=== PATIENT | male | born 1935 | race Caucasian/White ===

== ENCOUNTER 2020-08-16 18:01 | Inpatient (IN) ==
[2020-08-16 20:39] LABS: Basophils % 0.4 %; Eosinophils # 0.4 K/mcL (0.0-0.6); Eosinophils % 5.1 %; Hematocrit 43.3 % (37.5-50.1); Hemoglobin 13.7 g/dL (12.9-16.9); Immature Granulocytes % 0.1 % (0-4); Lymphocytes # 1.4 K/mcL (0.6-4.6); Lymphocytes % 19.2 %; Mean Corpuscular HGB Conc 31.6 g/dL (31.6-35.5); Mean Corpuscular Hemoglobin 29.7 pg (28.0-33.3); Mean Corpuscular Volume 93.7 fL (83.0-100.0); Mean Platelet Volume 9.8 fL (9.4-12.4); Monocytes # 0.8 K/mcL (0.0-1.3); Monocytes % 10.6 %; Neutrophils # 4.6 K/mcL (1.6-8.9); Platelet Count 149 K/mcL (140-400); Red Blood Count 4.62 M/mcL (4.19-5.50); Red Cell Distribution Width 12.5 % (11.5-14.5); Segmented Neutrophils % 64.6 %; White Blood Count 7.1 K/mcL (4.3-11.1)
[2020-08-16 20:44] LABS: INR 1.1; Prothrombin Time 12.4 Seconds (9.4-12.1)
[2020-08-16 20:46] LABS: Activated Partial Thrombo Time 28.9 Seconds (26.0-36.0)
[2020-08-16 21:01] LABS: BUN/Creatinine Ratio 18 (6-26); Blood Urea Nitrogen 20 mg/dL (8-23); Calcium 9.5 mg/dL (8.6-10.3); Carbon Dioxide 32 mEq/L (23-29); Chloride 102 mEq/L (98-107); Glucose 105 mg/dL (70-105); Osmolality,Calculated 289 (280-300); Sodium 138 mEq/L (136-145); eGFR For African Americans > 60 (> 60); eGFR For Non-African Americans > 60 (> 60)
[2020-08-16 21:04] LABS: Magnesium 1.8 mg/dL (1.6-2.6); Troponin I 0.06 ng/mL (< 0.04)
[2020-08-16] MEDS ORDERED: Aspirin 81 MG TAB.CHEW PO ONE (21:05)
[2020-08-16 21:13] LABS: Influenza A PCR Negative (Negative); Influenza B PCR Negative (Negative); Resp. Syncytial Virus PCR Negative (Negative)
[2020-08-16 21:15] LABS: SARS-CoV-2 by PCR (In House) Positive (Negative)
[2020-08-16 22:39] LABS: Thyroid Stimulating Hormone 0.726 mcIU/mL (0.340-5.600)
[2020-08-16] MEDS ORDERED: Naloxone 0.4 MG/ML INJ IVP PRN (22:41)
[2020-08-16] MEDS ORDERED: *HR* Promethazine 25 MG/ML VIAL IM PRN (22:47)
[2020-08-16] MEDS ORDERED: Ondansetron 4 MG/2 ML VIAL IVP PRN (22:47)
[2020-08-17] MEDS ORDERED: Perflutren Lipid Microsphere 1.3 ML in 0.9 % Sodium Chloride 8.7 ML IVP PRN (00:13)
[2020-08-17 02:08] LABS: Basophils % 0.1 %; Eosinophils # 0.3 K/mcL (0.0-0.6); Eosinophils % 4.5 %; Hematocrit 40.9 % (37.5-50.1); Hemoglobin 13.4 g/dL (12.9-16.9); Immature Granulocytes % 0.1 % (0-4); Lymphocytes # 1.3 K/mcL (0.6-4.6); Mean Corpuscular HGB Conc 32.8 g/dL (31.6-35.5); Mean Corpuscular Hemoglobin 30.9 pg (28.0-33.3); Mean Corpuscular Volume 94.2 fL (83.0-100.0); Monocytes # 0.8 K/mcL (0.0-1.3); Monocytes % 11.2 %; Neutrophils # 4.7 K/mcL (1.6-8.9); Platelet Count 129 K/mcL (140-400); Red Blood Count 4.34 M/mcL (4.19-5.50); Red Cell Distribution Width 12.4 % (11.5-14.5); Segmented Neutrophils % 66.1 %; White Blood Count 7.1 K/mcL (4.3-11.1)
[2020-08-17 02:12] LABS: INR 1.1; Prothrombin Time 12.6 Seconds (9.4-12.1)
[2020-08-17 02:33] LABS: Troponin I 0.06 ng/mL (< 0.04)
[2020-08-17 02:47] LABS: Chol/HDL Ratio 3.1 (0-4.9); Magnesium 1.8 mg/dL (1.6-2.6); Phosphorous 2.9 mg/dL (2.7-4.5)
[2020-08-17] MEDS ORDERED: Magnesium Sulfate 1 GM/102 ML PIGGYBACK IVPB ONE (03:23)
[2020-08-17] MEDS: *HR* Enoxaparin 40 MG/0.4 ML SYRINGE SQ SCH (04:58)
[2020-08-17] MEDS: Sennosides/Docusate Sodium TABLET PO SCH ×2 (08:30→23:54)
[2020-08-18 02:25] LABS: BUN/Creatinine Ratio 18 (6-26); Blood Urea Nitrogen 18 mg/dL (8-23); Calcium 9.4 mg/dL (8.6-10.3); Carbon Dioxide 25 mEq/L (23-29); Chloride 100 mEq/L (98-107); Glucose 85 mg/dL (70-105); Osmolality,Calculated 281 (280-300); Potassium 3.8 mEq/L (3.5-5.1); Sodium 135 mEq/L (136-145); eGFR For African Americans > 60 (> 60); eGFR For Non-African Americans > 60 (> 60)
[2020-08-18] MEDS: *HR* Enoxaparin 40 MG/0.4 ML SYRINGE SQ SCH (06:22)
[2020-08-18] MEDS: Sennosides/Docusate Sodium TABLET PO SCH ×2 (08:15→21:22)
[2020-08-18] MEDS: lisinopriL 10 MG TABLET PO SCH (08:15)
[2020-08-19] MEDS: *HR* Enoxaparin 40 MG/0.4 ML SYRINGE SQ SCH (05:50)
[2020-08-19 08:58] LABS: BUN/Creatinine Ratio 25 (6-26); Blood Urea Nitrogen 23 mg/dL (8-23); Carbon Dioxide 29 mEq/L (23-29); Chloride 99 mEq/L (98-107); Glucose 117 mg/dL (70-105); Magnesium 1.9 mg/dL (1.6-2.6); Osmolality,Calculated 283 (280-300); Potassium 3.8 mEq/L (3.5-5.1); Sodium 134 mEq/L (136-145); eGFR For African Americans > 60 (> 60); eGFR For Non-African Americans > 60 (> 60)
[2020-08-19] MEDS: Sennosides/Docusate Sodium TABLET PO SCH (10:07)
[2020-08-19] MEDS: lisinopriL 10 MG TABLET PO SCH (10:07)
[2020-08-19 11:56] VITALS: BP 140/62
== END 2020-08-19 15:38 | disposition home or self-care (01) | DRG 177 ==
LOC: CDU 18:01 → EMEROOARM 18:01 → CDU 23:23
PROVIDERS: ADMIT Internal Medicine; ATTEND Internal Medicine

== ENCOUNTER 2021-07-02 17:44 | Inpatient (IN) ==
[2021-07-02 19:30] LABS: Bilirubin,Urine Negative (Negative); Blood,Urine Negative (Negative); Clarity,Urine Clear (Clear); Color,Urine Light-Yellow (Yellow); Glucose,Urine (UA) Normal (Normal); Ketones,Urine Negative (Negative); Leukocyte Esterase,Urine Moderate (Negative); Nitrite,Urine Negative (Negative); PH,Urine 6.5 pH Units (5.0-8.0); Protein,Urine Trace mg/dL (Neg-Trace); Urobilinogen,Urine Normal (Normal); WBC,Urine 50-100 per hpf (0-3)
[2021-07-02 19:47] LABS: Amphetamine Screen,Urine Negative ng/mL (Cutoff=1000); Barbiturate Screen,Urine Negative ng/mL (Cutoff=200); Benzodiazepines Screen,Urine Negative ng/mL (Cutoff=200); Cannabinoid Screen,Urine Negative ng/mL (Cutoff = 50); Cocaine Screen,Urine Negative ng/mL (Cutoff= 300); Opiate Screen,Urine Negative ng/mL (Cutoff=300); Phencyclidine Screen,Urine Negative ng/mL (Cutoff=25)
[2021-07-02 20:09] LABS: Basophils # 0.1 K/mcL (0.0-0.2); Basophils % 0.9 %; Eosinophils # 0.6 K/mcL (0.0-0.6); Eosinophils % 7.1 %; Hematocrit 40.9 % (37.5-50.1); Hemoglobin 13.2 g/dL (12.9-16.9); Immature Granulocytes % 0.3 % (0-4); Lymphocytes # 1.3 K/mcL (0.6-4.6); Lymphocytes % 16.3 %; Mean Corpuscular HGB Conc 32.3 g/dL (31.6-35.5); Mean Corpuscular Hemoglobin 31.1 pg (28.0-33.3); Mean Corpuscular Volume 96.2 fL (83.0-100.0); Mean Platelet Volume 10.1 fL (9.4-12.4); Monocytes # 0.7 K/mcL (0.0-1.3); Monocytes % 9.1 %; Neutrophils # 5.1 K/mcL (1.6-8.9); Platelet Count 234 K/mcL (140-400); Red Blood Count 4.25 M/mcL (4.19-5.50); Segmented Neutrophils % 66.3 %; White Blood Count 7.7 K/mcL (4.3-11.1)
[2021-07-02 20:44] LABS: Acetaminophen < 10 mcg/mL (10-20); Alanine Aminotransferase 19 Units/L (7-52); Albumin/Globulin Ratio 1.4 (1.1-2.2); Alkaline Phosphatase 91 Units/L (34-104); Aspartate Amino Transferase 22 Units/L (13-39); BUN/Creatinine Ratio 18 (6-26); Bilirubin,Direct 0.1 mg/dL (0.0-0.2); Bilirubin,Indirect 0.5 mg/dL (0.0-1.0); Bilirubin,Total 0.6 mg/dL (0.3-1.0); Blood Urea Nitrogen 23 mg/dL (8-23); Calcium 9.9 mg/dL (8.6-10.3); Carbon Dioxide 30 mEq/L (23-29); Chloride 103 mEq/L (98-107); Ethanol < 10 mg/dL (Less than 10); Globulin 2.9 g/dL (2.4-3.5); Glucose 86 mg/dL (70-105); Osmolality,Calculated 293 (280-300); Salicylate < 2.5 mg/dL (15.0-30.0); Sodium 140 mEq/L (136-145); Thyroid Stimulating Hormone 0.777 mcIU/mL (0.340-5.600); Total Protein 6.9 g/dL (6.4-8.9); eGFR For African Americans > 60 (> 60); eGFR For Non-African Americans 54 (> 60)
[2021-07-02] MEDS ORDERED: cefTRIAXone 1,000 MG in 0.9 % Sodium Chloride Mini Bag 100 ML IVPB ONE (22:00)
[2021-07-02] MEDS ORDERED: *HR* Promethazine 25 MG/ML VIAL IM PRN (22:34)
[2021-07-02] MEDS ORDERED: Acetaminophen 325 MG TABLET PO PRN (22:34)
[2021-07-02] MEDS ORDERED: Naloxone 0.4 MG/ML INJ IVP PRN (22:34)
[2021-07-03] MEDS: *HR* HYDROcodone/Acet 5/325 mg TABLET PO PRN ×2 (00:48→19:11)
[2021-07-03] MEDS: 0.9 % Sodium Chloride 1,000 ML IVC SCH ×2 (00:49→01:00)
[2021-07-03] MEDS: Melatonin 3 MG TABLET PO PRN ×2 (00:49→19:11)
[2021-07-03] MEDS: QUEtiapine Fumarate 25 MG TABLET PO SCH ×2 (02:37→19:12)
[2021-07-03] MEDS ORDERED: *HR* LORazepam 2 MG/ML VIAL IVP ONE (03:01)
[2021-07-03] MEDS ORDERED: *HR* LORazepam 2 MG/ML VIAL ONE (03:02)
[2021-07-03] MEDS ORDERED: D5% in Water 1,000 ML IVC PRN (06:40)
[2021-07-03] MEDS ORDERED: *HR* Dextrose 50 % in Water (Syg) 50 ML SYRINGE IVP PRN (06:40)
[2021-07-03] MEDS ORDERED: Dextrose Gel 15 GM/37.5 ML TUBE PO PRN ×2 (06:40)
[2021-07-03] MEDS: cefTRIAXone 1,000 MG in Water for inj. (sterile) 10 ML IVP SCH (08:07)
[2021-07-03] MEDS ORDERED: cefTRIAXone 1,000 MG in 0.9 % Sodium Chloride Mini Bag 100 ML IVPB SCH (09:00)
[2021-07-03] MEDS: lisinopriL 10 MG TABLET PO SCH (10:37)
[2021-07-03] MEDS: Lactobacillus 1 EACH CAP.SPRINK PO SCH ×2 (10:37→19:11)
[2021-07-03] MEDS: Haloperidol Lactate 5 MG/ML VIAL IVP PRN ×3 (13:10→23:49)
[2021-07-04] MEDS ORDERED: *HR* LORazepam 2 MG/ML VIAL IVP ONE (01:01)
[2021-07-04 05:53] LABS: Hemoglobin 13.8 g/dL (12.9-16.9); Mean Corpuscular HGB Conc 32.1 g/dL (31.6-35.5); Mean Corpuscular Hemoglobin 30.2 pg (28.0-33.3); Mean Corpuscular Volume 94.1 fL (83.0-100.0); Mean Platelet Volume 9.8 fL (9.4-12.4); Platelet Count 213 K/mcL (140-400); Red Blood Count 4.57 M/mcL (4.19-5.50); Red Cell Distribution Width 12.8 % (11.5-14.5); White Blood Count 7.7 K/mcL (4.3-11.1)
[2021-07-04 06:11] LABS: BUN/Creatinine Ratio 16 (6-26); Blood Urea Nitrogen 18 mg/dL (8-23); Calcium 9.4 mg/dL (8.6-10.3); Carbon Dioxide 29 mEq/L (23-29); Chloride 103 mEq/L (98-107); Glucose 85 mg/dL (70-105); Osmolality,Calculated 291 (280-300); Potassium 3.7 mEq/L (3.5-5.1); Sodium 140 mEq/L (136-145); eGFR For African Americans > 60 (> 60); eGFR For Non-African Americans > 60 (> 60)
[2021-07-04] MEDS: Haloperidol Lactate 5 MG/ML VIAL IVP PRN ×2 (07:30→15:05)
[2021-07-04] MEDS: cefTRIAXone 1,000 MG in Water for inj. (sterile) 10 ML IVP SCH (07:30)
[2021-07-04] MEDS ORDERED: QUEtiapine Fumarate 25 MG TABLET PO SCH (09:00)
[2021-07-04] MEDS: hydroCHLOROthiazide 25 MG TABLET PO SCH (10:26)
[2021-07-04] MEDS: Lactobacillus 1 EACH CAP.SPRINK PO SCH ×2 (10:26→19:37)
[2021-07-04] MEDS: lisinopriL 10 MG TABLET PO SCH (10:26)
[2021-07-04] MEDS ORDERED: *HR* LORazepam 2 MG/ML VIAL IM STA (17:48)
[2021-07-04] MEDS ORDERED: Haloperidol Lactate 5 MG/ML VIAL IVP SCH (18:00)
[2021-07-04] MEDS: Haloperidol Lactate 5 MG/ML VIAL IVP SCH ×4 (19:14→23:19)
[2021-07-05] MEDS ORDERED: Ketorolac 30 MG/ML VIAL IVP ONE (02:06)
[2021-07-05] MEDS: Haloperidol Lactate 5 MG/ML VIAL IVP SCH (07:15)
[2021-07-05] MEDS: hydroCHLOROthiazide 25 MG TABLET PO SCH (08:13)
[2021-07-05] MEDS: lisinopriL 10 MG TABLET PO SCH (08:13)
[2021-07-05] MEDS: Lactobacillus 1 EACH CAP.SPRINK PO SCH ×2 (08:13→19:00)
[2021-07-05] MEDS: cefTRIAXone 1,000 MG in Water for inj. (sterile) 10 ML IVP SCH (08:13)
[2021-07-05] MEDS ORDERED: Morphine Sulfate 2 MG/ML SYRINGE IVP ONE (08:44)
[2021-07-05] MEDS ORDERED: Haloperidol Lactate 5 MG/ML VIAL IVP PRN (09:19)
[2021-07-05] MEDS ORDERED: Acetaminophen 650 MG RECTAL SUPP RC PRN (09:21)
[2021-07-05] MEDS ORDERED: Bisacodyl 10 MG RECTAL SUPPOSITORY RC PRN (09:22)
[2021-07-05] MEDS: Haloperidol Oral Conc 10 MG/5 ML UDC PO PRN (15:59)
[2021-07-05] MEDS ORDERED: *HR* LORazepam 2 MG/ML VIAL IVP ONE (20:22)
[2021-07-05] MEDS ORDERED: QUEtiapine Fumarate 25 MG TABLET PO SCH (21:00)
[2021-07-06] MEDS: Haloperidol Oral Conc 10 MG/5 ML UDC PO PRN (06:35)
[2021-07-06] MEDS: Lactobacillus 1 EACH CAP.SPRINK PO SCH ×2 (07:24→20:26)
[2021-07-06] MEDS: cefTRIAXone 1,000 MG in Water for inj. (sterile) 10 ML IVP SCH (07:34)
[2021-07-06] MEDS ORDERED: Haloperidol Lactate 5 MG/ML VIAL IVP SCH (08:03)
[2021-07-06] MEDS ORDERED: *HR* LORazepam 2 MG/ML VIAL IVP PRN (08:03)
[2021-07-06] MEDS: Haloperidol Oral Conc 10 MG/5 ML UDC PO SCH ×3 (13:53→20:34)
[2021-07-07] MEDS: Haloperidol Oral Conc 10 MG/5 ML UDC PO SCH ×4 (03:02→16:52)
[2021-07-07] MEDS: Lactobacillus 1 EACH CAP.SPRINK PO SCH ×3 (07:48→19:51)
[2021-07-07] MEDS: cefTRIAXone 1,000 MG in Water for inj. (sterile) 10 ML IVP SCH (07:48)
[2021-07-07] MEDS ORDERED: Haloperidol Lactate 5 MG/ML VIAL IVP ONE (18:00)
[2021-07-08] MEDS: Haloperidol Oral Conc 10 MG/5 ML UDC PO SCH ×2 (00:59→17:57)
[2021-07-08] MEDS: cefTRIAXone 1,000 MG in Water for inj. (sterile) 10 ML IVP SCH (08:27)
[2021-07-08] MEDS: Lactobacillus 1 EACH CAP.SPRINK PO SCH ×2 (08:28→19:08)
[2021-07-08] MEDS ORDERED: Haloperidol Oral Conc 10 MG/5 ML UDC PO SCH (09:00)
[2021-07-09] MEDS: Haloperidol Oral Conc 10 MG/5 ML UDC PO SCH ×2 (01:04→19:00)
[2021-07-09 04:03] LABS: Mean Corpuscular HGB Conc 32.6 g/dL (31.6-35.5); Mean Corpuscular Hemoglobin 30.3 pg (28.0-33.3); Mean Corpuscular Volume 92.9 fL (83.0-100.0); Mean Platelet Volume 9.8 fL (9.4-12.4); Platelet Count 300 K/mcL (140-400); Red Blood Count 5.38 M/mcL (4.19-5.50); Red Cell Distribution Width 12.4 % (11.5-14.5)
[2021-07-09 04:11] LABS: Hemoglobin 16.3 g/dL (12.9-16.9)
[2021-07-09 04:23] LABS: BUN/Creatinine Ratio 33 (6-26); Blood Urea Nitrogen 31 mg/dL (8-23); Calcium 10.1 mg/dL (8.6-10.3); Carbon Dioxide 27 mEq/L (23-29); Chloride 103 mEq/L (98-107); Glucose 101 mg/dL (70-105); Magnesium 2.1 mg/dL (1.6-2.6); Osmolality,Calculated 301 (280-300); Sodium 142 mEq/L (136-145); eGFR For African Americans > 60 (> 60); eGFR For Non-African Americans > 60 (> 60)
[2021-07-09] MEDS ORDERED: Haloperidol Oral Conc 10 MG/5 ML UDC PO SCH (09:00)
[2021-07-09] MEDS: Lactobacillus 1 EACH CAP.SPRINK PO SCH ×2 (09:02→19:00)
[2021-07-10] MEDS: Haloperidol Oral Conc 10 MG/5 ML UDC PO SCH (00:36)
[2021-07-10] MEDS ORDERED: Haloperidol Oral Conc 10 MG/5 ML UDC PO SCH ×3 (09:00→13:30)
[2021-07-10] MEDS: Lactobacillus 1 EACH CAP.SPRINK PO SCH ×2 (09:05→09:53)
[2021-07-10 11:06] VITALS: BP 170/90; PULSE 70; TEMP 97.3; O2SAT 93
[2021-07-10 11:34] LABS: Influenza A PCR Negative (Negative); Influenza B PCR Negative (Negative); Resp. Syncytial Virus PCR Negative (Negative)
[2021-07-10 11:37] LABS: SARS-CoV-2 by PCR (In House) Negative (Negative)
[2021-07-11] MEDS ORDERED: Haloperidol Oral Conc 10 MG/5 ML UDC PO SCH (06:00)
== END 2021-07-10 14:30 | DRG 309 ==
LOC: SUATTDRO → 3NENU 17:44 → EMEROOARM 17:44 → SUATTDRO 22:57 → 3NENU 23:28 → 2ANU 07-04 14:55 → SUATTDRO 07-04 15:11
PROVIDERS: ADMIT Internal Medicine; ATTEND Internal Medicine